=== PATIENT | male | born 1950 | race Caucasian/White ===

== ENCOUNTER 2016-07-18 09:31 | Emergency (ER) | payer MEDICARE, OTHER ==
[2016-07-18 09:58] VITALS: BP 133/85
--- NOTE | 2016-07-18 10:44 | EDM.PDOC ---
ED HPI GENERAL MEDICAL PROBLEM - General Chief Complaint: Respiratory Problem Stated Complaint: WHEEZING??, congestion Time Seen by Provider: 07/18/16 10:00 Source of Information: Reports: Patient History Limitations: Reports: No Limitations - History of Present Illness INITIAL COMMENTS - FREE TEXT/NARRATIVE: 65-year-old [place] presents emergency room with the complaints of congestion cough or last 10 days. Patient reports that he has been calling [employer] out of the bins. He shall states that he had an abscessed tooth removed by his dentist on July 08. 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 He denies any recent fever or chills, nausea or vomiting, shortness of breath or chest pain. He denies any significant swelling warmth or redness to his knee. Denies any significant swelling or increased pain in his knee. Initially felt that he had a sore throat but this has seemed to improve. Continues with a cough and notices nasal drainage. He denies significant sinus pressure, ear pain, watery eyes. He has not taken a decongestant or antihistamine. He is otherwise very healthy gentleman and presents to the ER with his . Onset: Gradual Onset Date: 07/09/16 Duration: Day(s):, Constant Location: Reports: Face Quality: Reports: Pressure Severity: Mild Associated Symptoms: Reports: Cough. Denies: Chest Pain, Fever/Chills, Headaches, Nausea/Vomiting, Weakness - Related Data Allergies Allergy/AdvReac Type Severity Reaction Status Date / Time No Known Drug Allergies Allergy Cannot Verified 07/18/16 09:58 Remember Home Meds: Home Meds Aspirin [Adult Low Dose Aspirin EC] 81 mg PO BEDTIME 07/18/16 [History] Multivitamin [Multivitamins] 1 each PO DAILY 07/18/16 [History] Simvastatin [Zocor] 10 mg PO BEDTIME 07/18/16 [History] Social & Family History - Tobacco Use Smoking Status *Q: Never Smoker Second Hand Smoke Exposure: No - Caffeine Use Caffeine Use: Reports: Soda - Recreational Drug Use Recreational Drug Use: No ED ROS GENERAL - Review of Systems Review Of Systems: ROS reveals no pertinent complaints other than HPI. ED EXAM, GENERAL - Physical Exam Exam: See Below Exam Limited By: No Limitations General Appearance: Alert, WD/WN, No Apparent Distress Eye Exam: Bilateral Eye: EOMI, PERRL Ears: Normal External Exam, Hearing Grossly Normal Ear Exam: Bilateral Ear: Other (bilateral cerumen in the ear canal) Nose: Normal Inspection, Clear Rhinorrhea Throat/Mouth: Normal Inspection, Normal Lips, Normal Gums, Normal Oropharynx, No Airway Compromise. No: Inflammation Head: Atraumatic Neck: Normal Inspection. No: Lymphadenopathy (L), Lymphadenopathy (R) Respiratory/Chest: No Respiratory Distress, Lungs Clear Cardiovascular: Regular Rate, Rhythm, No Murmur Extremities: Normal Inspection, No Pedal Edema, Other (no significant swelling, warmth, redness to his knees). No: Joint Swelling, Increased Warmth Neurological: Alert, Oriented Psychiatric: Normal Affect, Normal Mood Skin Exam: Warm, Dry, Intact, Normal Color, No Rash Lymphatic: No Adenopathy Course - Vital Signs Last Recorded V/S: Last Vital Signs Temp 97.2 F 07/18/16 09:50 Pulse 74 07/18/16 09:50 Resp 20 07/18/16 09:50 BP 133/85 07/18/16 09:50 Pulse Ox 95 07/18/16 09:50 Departure - Departure Time of Disposition: 10:49 Disposition: Home, Self-Care 01 Condition: good Clinical Impression: Congestion of nasal sinus - Discharge Information Instructions: Allergic Rhinitis Referrals: PCP,Not In Area [Primary Care Provider] - Forms: ED Department Discharge Additional Instructions: 1. Recommend staying out of the hot humid air over the weekend. 2. 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 3. Followup with your primary care next week if not improving. 4. Recommend taking plenty of water as the decongestant can be dehydrating. Care Plan Goals: 1. Claritin 10 mg by mouth daily 2. Medrol Dosepak taper over 6 days. 3. Pseudoephedrine for decongestant Sudafed 12 hours the twice a day. - Assessment/Plan Assessment:: Sinus congestion Plan: 1. Claritin 10 mg daily 2. Sudafed every 12 hours for decongestant 3. Medrol Dosepak over the next 6 days for inflammation 4. Encourage oral hydration with water 5. Avoid the hot humid air outside over the weekend 6. Recommend using a dust mask when hauling grain from [employer]. 7. Follow up with your primary care next week if you don't feel you're making improvements with the decongestant,antihistamine and steroid.
== END 2016-07-18 10:50 | disposition home or self-care (01) ==
LOC: KA.ED 09:31
DX: R09.81 Nasal congestion (principal); Z79.82 Long term (current) use of aspirin; Z79.899 Other long term (current) drug therapy
CPT/HCPCS: 99283